=== PATIENT | male | born 1980 | race Two or more races ===

== ENCOUNTER 2021-12-16 00:10 | Emergency (ER) | payer MEDICAID ==
[~2021-12-16] VITALS: Ht 172.7 cm; Wt 82.6 kg
--- NOTE | 2021-12-16 00:40 | NUR ---
Pt A/O x 4. NAD noted. Ambulatory with steady gait.
--- NOTE | 2021-12-16 01:00 | NUR ---
Dr. Oconnell at bedside. MSE in progress.
[2021-12-16 01:11] LABS: *BILIRUBIN,URIN NEGATIVE (NEGATIVE); *BLOOD, URINE NEGATIVE (NEGATIVE); *CLARITY,URINE CLEAR (CLEAR); *COLOR,URINE YELLOW (YELLOW); *KETONES,URINE NEGATIVE (NEGATIVE); *UROBILINOGEN,URINE 0.2 E.U./dl (NORMAL); LEUKOCYTE ESTERASE ,URINE NEGATIVE (NEGATIVE); NITRITE, URINE NEGATIVE (NEGATIVE); UGLUCOSE NEGATIVE (NEGATIVE)
[2021-12-16 01:25] LABS: HEMATOCRIT 45.7 % (36.7-47.1); MEAN CORPUSCULAR HEMOGLOBIN 32.2 uug (23.8-33.4); MEAN CORPUSCULAR VOLUME 89.4 fL (73.0-96.2); PLATELET COUNT (AUTO) 175 K/uL (152-348)
[2021-12-16] MEDS ORDERED: PENICILLIN G BENZATHINE 2.4 MMU/4 ML DISP.SYRIN IM ONE ×2 (01:30→01:51)
[2021-12-16] MEDS ORDERED: CEFTRIAXONE 1 G VIAL IM ONE (01:30)
[2021-12-16 01:32] LABS: CARBON DIOXIDE 28 mmol/L (21-32); CHLORIDE 102 mmol/L (98-107); CREATININE 1.4 mg/dL (0.6-1.3); GLUCOSE 114 mg/dL (74-106); POTASSIUM 3.9 mmol/L (3.5-5.1); UREA NITROGEN, BLOOD 15 mg/dL (7-18)
[2021-12-16 01:38] LABS: ALANINE AMINOTRANSFERASE 115 U/L (16-63); ALKALINE PHOSPHATASE 103 U/L (50-136); ASPARTATE AMINOTRANSFERASE 35 U/L (15-37); BILIRUBIN,DIRECT < 0.1 mg/dL (0.0-0.2); BILIRUBIN,TOTAL 0.4 mg/dL (0.2-1.0); TOTAL PROTEIN, SERUM 7.5 g/dL (6.4-8.2)
[2021-12-16] MEDS ORDERED: CEFTRIAXONE 1 G VIAL ONE (01:48)
[2021-12-16] MEDS ORDERED: LIDOCAINE HCL 1% 20 ML VIAL ONE (01:49)
--- NOTE | 2021-12-16 06:02 | NUR ---
Patient left prior to reciving discharge paperowrd.
[2021-12-16 06:03] VITALS: BP 132/87
[2021-12-18 02:06] LABS: *GC NAA Negative (Negative)
[2021-12-18 05:06] LABS: *TRIC.VAG. NAA Negative (Negative)
== END 2021-12-16 06:11 | disposition home or self-care (01) ==
LOC: ER 00:25
DX: R51.9 Headache, unspecified (principal); Z20.2 Contact with and (suspected) exposure to infections with a predominantly sexual mode of transmission; F17.210 Nicotine dependence, cigarettes, uncomplicated
CPT/HCPCS: 99285; 70450; 99406; 86592; 80076; 80048; 81003; 85025; 36415; 96372 ×2; 87491; J0561; J0696; J3490; 93005; A4663